=== PATIENT | female | born 1955 | race Caucasian/White ===

== ENCOUNTER → 2016-06-26 | Outpatient (CLI) | payer BC, OTHER ==
--- NOTE | 2016-06-26 10:48 | RAD ---
EXAM: Chest, 2 views. HISTORY: Cough. COMPARISON: 01/07/2014. FINDINGS: Frontal and lateral views of the chest are obtained. There is no infiltrate, effusion or pneumothorax. The heart is normal in size.. IMPRESSION: No acute pulmonary finding.
== END | disposition home or self-care (01) ==
LOC: DXRADRC 10:31
PROVIDERS: ATTEND Physician Assistant Medical
DX: R05 Cough (principal)
CPT/HCPCS: 71020

== ENCOUNTER → 2017-07-06 | Outpatient (CLI) | payer BC ==
--- NOTE | 2017-07-06 13:18 | RAD ---
Left knee, 3 views, 07/06/2017: History: Chronic knee pain The bony structures are demineralized. There is mild spurring at the knee joint with underlying chondrocalcinosis. There is moderate severe degenerative change at the patellofemoral articulation. No fracture or dislocation is identified. No large joint effusion is seen. IMPRESSION: 1. Moderate degenerative change with chondrocalcinosis. 2. No acute bony abnormality is detected.
== END | disposition home or self-care (01) ==
LOC: DXRAD 10:38
PROVIDERS: ATTEND Physician Assistant Medical
DX: M17.12 Unilateral primary osteoarthritis, left knee (principal); M11.262 Other chondrocalcinosis, left knee; G89.29 Other chronic pain
CPT/HCPCS: 73562

== ENCOUNTER → 2018-03-06 | Outpatient (CLI) | payer BC ==
--- NOTE | 2018-03-07 08:38 | RAD ---
Left knee, 2 views, 03/06/2018: HISTORY: Left knee pain and swelling The bony structures are demineralized. There is mild spurring at the knee joint and severe degenerative change at the patellofemoral articulation. Minimal chondrocalcinosis is present. No fracture or dislocation is identified. No large joint effusion is seen. IMPRESSION: 1. Demineralization. 2. Moderate degenerative change with chondrocalcinosis. 3. No acute bony abnormality is detected. Electronically signed by: Rashid Iverson MD (03/07/2018 8:34 AM) [facility]
== END | disposition home or self-care (01) ==
LOC: RAD 17:00
PROVIDERS: ATTEND Physician Assistant Medical
DX: M17.12 Unilateral primary osteoarthritis, left knee (principal); M11.262 Other chondrocalcinosis, left knee; M81.8 Other osteoporosis without current pathological fracture
CPT/HCPCS: 73560

== ENCOUNTER → 2019-08-14 | Outpatient (CLI) | payer BC ==
--- NOTE | 2019-08-14 13:24 | RAD ---
EXAM: CHEST PA LATERAL INDICATION: Chronic cough. TECHNIQUE: PA and lateral views COMPARISON: 06/26/2016 FINDINGS: The heart size is normal. The great vessels appear unremarkable. There is no hilar or mediastinal mass. The lungs are clear. There is no pleural effusion or pneumothorax. There are no significant osseous abnormalities. IMPRESSION: No active cardiopulmonary disease. Electronically signed by: Saman Darling MD (08/14/2019 1:21 PM) [id number]
== END ==
LOC: DXRAD 11:27
PROVIDERS: ATTEND Physician Assistant Medical
DX: R05 Cough (principal)
CPT/HCPCS: 71046

== ENCOUNTER → 2021-06-28 | Outpatient (CLI) | payer BC ==
--- NOTE | 2021-06-30 11:43 | RAD ---
Single PA chest radiograph and 2 views of right ribs without comparison for posterior right rib pain. FINDINGS: Lungs are clear. Heart size within normal limits. No pneumothorax or pleural effusion. No r adiographically discernible rib fractures. IMPRESSION: 1. No acute cardiopulmonary abnormality and no radiographically discernible rib fractures. Electronically signed by: Thierry Sr MD (06/29/2021 10:14 AM) [id number]
== END ==
LOC: RAD 11:36
PROVIDERS: ATTEND Physician Assistant Medical
DX: R07.81 Pleurodynia (principal)
CPT/HCPCS: 71101

== ENCOUNTER → 2021-08-08 | Outpatient (CLI) | payer BC ==
--- NOTE | 2021-08-08 09:53 | RAD ---
EXAM: Thoracic spine, 3 views. HISTORY: Pain. COMPARISON: None. FINDINGS: 3 views of the thoracic spine are obtained. There is mild S-shaped thoracolumbar scoliosis. There is multilevel degenerative endplate remodeling and anterior spurring. There are mild chronic e ndplate depressions at multiple levels. There is no convincing acute fracture. There is a gastric lap band. There are cholecystectomy clips. IMPRESSION: Multilevel degenerative change. No acute osseous finding. Electronically signed by: Pat Lyman MD (08/08/2021 9:50 AM) [id number]
== END ==
LOC: RAD 09:11
PROVIDERS: ATTEND Physician Assistant Medical
DX: M47.814 Spondylosis without myelopathy or radiculopathy, thoracic region (principal); M41.85 Other forms of scoliosis, thoracolumbar region; Z90.49 Acquired absence of other specified parts of digestive tract
CPT/HCPCS: 72072